=== PATIENT | male | born 1950 | race Caucasian/White ===

== ENCOUNTER → 2020-07-18 | Outpatient (CLI) | payer OTHER | LOC: WOUNDCARE 13:23 | PROVIDERS: ATTEND Nurse Practitioner | DX: T23.371A Burn of third degree of right wrist, initial encounter (principal); L03.113 Cellulitis of right upper limb; E78.00 Pure hypercholesterolemia, unspecified; J44.9 Chronic obstructive pulmonary disease, unspecified; I10 Essential (primary) hypertension; F17.210 Nicotine dependence, cigarettes, uncomplicated; Z95.5 Presence of coronary angioplasty implant and graft; Z90.49 Acquired absence of other specified parts of digestive tract; X17.XXXA Contact with hot engines, machinery and tools, initial encounter; Y93.89 Activity, other specified; Y92.89 Other specified places as the place of occurrence of the external cause; Y99.8 Other external cause status ==

== ENCOUNTER → 2020-07-30 | Outpatient (CLI) | payer OTHER | END | disposition home or self-care (01) | LOC: WOUNDCARE 01:18 | PROVIDERS: ATTEND Nurse Practitioner | DX: T23.37 Burn of third degree of wrist (principal); L03.113 Cellulitis of right upper limb; E78.00 Pure hypercholesterolemia, unspecified; J44.9 Chronic obstructive pulmonary disease, unspecified; I10 Essential (primary) hypertension; F17.210 Nicotine dependence, cigarettes, uncomplicated; X17.XXXD Contact with hot engines, machinery and tools, subsequent encounter ==

== ENCOUNTER → 2020-08-15 | Outpatient (CLI) | payer OTHER | LOC: WOUNDCARE 02:15 | PROVIDERS: ATTEND Nurse Practitioner | DX: T23.37 Burn of third degree of wrist (principal); L03.113 Cellulitis of right upper limb; E78.00 Pure hypercholesterolemia, unspecified; J44.9 Chronic obstructive pulmonary disease, unspecified; I10 Essential (primary) hypertension; F17.210 Nicotine dependence, cigarettes, uncomplicated; X17.XXXD Contact with hot engines, machinery and tools, subsequent encounter ==

== ENCOUNTER → 2020-08-22 | Outpatient (CLI) | payer OTHER ==
[~2020-08-22] MED LIST: ALLOPURINOL100 MG PO; ASPIRIN CHEWABL81 MG PO; BUMEX2.5 MG/10 PO; COREG12.5 M1 PO; FLONASE ALLERG9.9 ML NAS; LIPITOR80 MG PO; MAGNESIUM ELEME30 MG PO; NEURONTIN100 MG PO; NITROSTAT0.3 M1 SL; PERCOCET 5-3251 EACH PO; PLAVIX75 M1 PO; TRELEGY ELLIPT1 EACH INH; VENT7GM INH; ZEGERID 40 MG1 EACH PO; ZETIA10 MG PO
== END ==
LOC: WOUNDCARE 01:01
PROVIDERS: ATTEND Nurse Practitioner
DX: T23.37 Burn of third degree of wrist (principal); L03.113 Cellulitis of right upper limb; I11.9 Hypertensive heart disease without heart failure; E78.00 Pure hypercholesterolemia, unspecified; J44.9 Chronic obstructive pulmonary disease, unspecified; N28.9 Disorder of kidney and ureter, unspecified; F17.210 Nicotine dependence, cigarettes, uncomplicated; X17.XXXD Contact with hot engines, machinery and tools, subsequent encounter

== ENCOUNTER → 2020-08-28 | Outpatient (CLI) | payer OTHER | LOC: WOUNDCARE 02:47 | PROVIDERS: ATTEND Surgery | DX: T23.37 Burn of third degree of wrist (principal); L03.113 Cellulitis of right upper limb; I11.9 Hypertensive heart disease without heart failure; E78.00 Pure hypercholesterolemia, unspecified; J44.9 Chronic obstructive pulmonary disease, unspecified; N28.9 Disorder of kidney and ureter, unspecified; F17.210 Nicotine dependence, cigarettes, uncomplicated; X17.XXXD Contact with hot engines, machinery and tools, subsequent encounter ==

== ENCOUNTER → 2020-09-18 | Outpatient (CLI) | payer OTHER | LOC: WOUNDCARE 01:06 | PROVIDERS: ATTEND Surgery | DX: T23.37 Burn of third degree of wrist (principal); L03.113 Cellulitis of right upper limb; I11.9 Hypertensive heart disease without heart failure; E78.00 Pure hypercholesterolemia, unspecified; J44.9 Chronic obstructive pulmonary disease, unspecified; N28.9 Disorder of kidney and ureter, unspecified; F17.210 Nicotine dependence, cigarettes, uncomplicated; X17.XXXD Contact with hot engines, machinery and tools, subsequent encounter ==

== ENCOUNTER → 2020-09-27 | Day surgery (SDC) | payer OTHER ==
[2020-09-24 16:08] LABS: CREATININE 2.92 mg/dL (0.70-1.30); POTASSIUM 4.8 mmol/L (3.5-5.1)
[~2020-09-27] VITALS: Ht 172.7 cm; Wt 83.9 kg
[2020-09-27 10:52] VITALS: BP 133/87
[2020-09-27 12:25] VITALS: BP 103/65
[2020-09-27 12:40] VITALS: BP 114/63
[2020-09-27 12:51] VITALS: BP 114/69
== END | disposition home or self-care (01) ==
LOC: SDC 09-24 14:00
PROVIDERS: ATTEND Surgery
DX: T23.271A Burn of second degree of right wrist, initial encounter (principal); L03.113 Cellulitis of right upper limb; J44.9 Chronic obstructive pulmonary disease, unspecified; I25.10 Atherosclerotic heart disease of native coronary artery without angina pectoris; I10 Essential (primary) hypertension; Z86.73 Personal history of transient ischemic attack (TIA), and cerebral infarction without residual deficits; Z72.0 Tobacco use; Z20.822 Contact with and (suspected) exposure to COVID-19

== ENCOUNTER → 2020-10-02 | Outpatient (CLI) | payer OTHER | LOC: WOUNDCARE 01:27 | PROVIDERS: ATTEND Surgery | DX: T23.37 Burn of third degree of wrist (principal); L03.113 Cellulitis of right upper limb; I11.9 Hypertensive heart disease without heart failure; E78.00 Pure hypercholesterolemia, unspecified; J44.9 Chronic obstructive pulmonary disease, unspecified; N28.9 Disorder of kidney and ureter, unspecified; F17.210 Nicotine dependence, cigarettes, uncomplicated; X17.XXXD Contact with hot engines, machinery and tools, subsequent encounter ==